=== PATIENT | female | born 1955 | race American Indian/Alaskan Native ===

== ENCOUNTER 2019-09-01 07:52 | Day surgery (SDC) | payer OTHER ==
[~2019-09-01 07:52] MED LIST: PROPOFOL 200 MG/20 ML VIAL IV ONE; SODIUM CHLORIDE 0.9% 1000 ML 1,000 ML IV SCH; fentaNYL 100 MCG/2 ML INJ ONE
[2019-09-01] MEDS ORDERED: LIDOCAINE MPF (2%) 20 MG/1 ML VIAL 5 ML ONE (09:00)
--- NOTE | 2019-09-01 09:05 | Anesthesia Day of Surgery ---
Anesthesia Day of Surgery - Day of Surgery Patient Examined: Yes Patient H&P Reviewed: Yes Patient is NPO: Yes (completed bowel prep at 0300)
--- NOTE | 2019-09-01 09:05 | Anesthesia Consultation ---
Anesthesia Consult and Med Hx Date of service: 09/01/19 - Airway Anesthetic Teeth Evaluation: Dentures (upper) ROM Head & Neck: Adequate Mental/Hyoid Distance: Inadequate Mallampati Class: Class III Intubation Access Assessment: Possibly Difficult - Pulmonary Exam CTA: Yes - Cardiac Exam Cardiac Exam: RRR - Pre-Operative Health Status ASA Pre-Surgery Classification: ASA3 Proposed Anesthetic Plan: MAC - Pulmonary Hx Smoking: No Hx Respiratory Symptoms: No - Cardiovascular System Hx Hypertension: Yes Hx Heart Attack/AMI: No Hx Percutaneous Transluminal Coronary Angioplasty (PTCA): No - Central Nervous System CVA: No - Gastrointestinal Hx Gastroesophageal Reflux Disease: Yes - Endocrine Hx Renal Disease: No Hx Liver Disease: No Hx Insulin Dependent Diabetes: Yes Hx Thyroid Disease: No - Other Systems Hx Obesity: Yes - Additional Comments Anesthesia Medical History Comments: No hx anesthetic complications.
--- NOTE | 2019-09-01 09:57 | Short Stay Summary ---
Short Stay Documentation Date of service: 09/01/19 Narrative H&P: The pt presents for EGD to evaluate epigastric pain and diagnostic colonoscopy to evaluate LLQ pain. - History Past Medical History: diabetes, hypertension Past Surgical History: appendectomy, cholecystectomy Social history: no significant social history, lives with family - Allergies and Medications Current Medications: Allergies codeine Allergy (Verified 08/31/19 11:14) Unknown NUTS Adverse Reaction (Severe, Uncoded 09/01/19 08:18) Anaphylaxis Home Medications Medication Instructions Recorded Confirmed Last Taken Type Aspirin 81 mg PO DAILY 08/31/19 09/01/19 08/30/19 History Basaglar Kwikpen U-100 53 units SQ DAILY 08/31/19 09/01/19 08/30/19 History Lisinopril/Hydrochlorothiazide 12.5 - 20 mg PO DAILY 08/31/19 09/01/19 08/31/19 History Simvastatin 20 mg PO DAILY 08/31/19 09/01/19 08/30/19 History glipiZIDE 20 mg PO DAILY 08/31/19 09/01/19 08/30/19 History metFORMIN 500 mg PO BID 08/31/19 09/01/19 08/30/19 History Magnesium 500 mg PO DAILY 09/01/19 09/01/19 08/30/19 History NovoLOG 100 UNITS/ML VIAL 7 units SUB-Q TID 09/01/19 09/01/19 08/30/19 History Vitamin D3 1 tab PO DAILY 09/01/19 09/01/19 08/30/19 History Active Medications Sodium Chloride (Nacl 0.9% 1000 Ml) 1,000 mls @ 50 mls/hr IV DIRECT LUIS Last Admin: 09/01/19 08:36 Dose: 50 mls/hr Documented by: - Physical exam General appearance: no acute distress, well-nourished Integumentary: no rash, no growths, no abnormal pigmentation HEENT: Atraumatic, PERRLA, EOMI, Mucous membr. moist/pink Lungs: Clear to auscultation, Normal air movement Breasts: deferred Heart: Regular rate, Normal S1, Normal S2, No murmurs Gastrointestinal: normoactive bowel sounds, no tenderness, no distended, no masses, no guarding, no organomegaly, no obese Female Genitourinary: deferred Rectal Exam: normal exam-external/orifice, normal rectal tone, no mass Extremities: no ischemia, pulses intact, pulses symmetrical, No edema, normal temperature, normal color, Full ROM Neurological: Normal gait, Normal speech, Strength at 5/5 X4 ext, Normal tone, Sensation intact, Cranial nerves 3-12 NL - Brief post op/procedure progress note Date of procedure: 09/01/19 Findings: see dictation Estimated blood loss: none Pathology: list (antral biopsies for h.pylori) Specimen disposition: to lab Condition: stable - Disposition Condition at discharge: Good Disposition: DC-01 TO HOME OR SELFCARE - Discharge Diagnoses (1) Epigastric abdominal pain Status: Acute (2) LLQ abdominal pain Status: Acute Short Stay Discharge Plan Activity: other (no driving for 24 hours) Weight Bearing Status: Full Weight Bearing Diet: diabetic Follow up with: JONG OG MD [Primary Care Provider] - 7 Days
--- NOTE | 2019-09-01 10:00 | Operative Report ---
Operative Report Operative Report: Date of procedure: 09/01/2019 Procedure: Esophagogastroduodenoscopy with antral biopsies for H. pylori Preprocedure diagnosis: Epigastric pain Post procedure diagnosis: Mild to moderate erosive antral gastritis Endoscopist: Dr. Marte Anesthesia: Monitored anesthesia care per anesthesia department Medications: Propofol per anesthesia Estimated blood loss: 0 After careful discussion of the nature and purpose of the procedure as well as details the technique risks benefits and alternatives consent was obtained. The patient was placed in the left lateral decubitus position and medicated per anesthesia. The tip of the Olympus video scope was passed per orum under direct vision into the esophagus and advanced into the stomach and descending duodenum. The descending duodenum the duodenal bulb and pylorus were symmetrical and normal. The scope was withdrawn into the stomach and the stomach then gently insufflated with air. The antrum revealed multiple punctate erosions. Biopsies were taken in the prepyloric area for H. pylori testing. The stomach was further insufflated and the scope was then retroflexed and partially withdrawn. The cardia, fundus, and body of the stomach were within normal limits and easily distensible.The scope was then withdrawn in the forward position. The esophagogastric junction was at 36 cm. The esophageal body was normal throughout. The procedure was was well tolerated and the patient was observed in recovery. Impressions: Mild to moderate erosive antral gastritis and normal appearing upper digestive tract otherwise. Plan: Await pathology report to assess for H. pylori infection. The patient will call the office in approximately 10 days. Electronically signed: Carlin Marte MD
--- NOTE | 2019-09-01 10:02 | Operative Report ---
Operative Report Operative Report: Date of procedure: 09/01/2019 Preprocedure diagnosis: Left lower quadrant pain Post procedure diagnosis: Normal study Procedure: Colonoscopy to the cecum Endoscopist: Dr. Marte Anesthesia: Monitored anesthesia care per anesthesia department Estimated blood loss: 0 Medications: Monitored anesthesia care. See separate report by anesthesia for details. After careful discussion of the nature and purpose of the procedure as well as details of the technique risks benefits and alternatives the patient gave consent. Please see recent history and physical from the office. The patient was placed in the left lateral decubitus position and medicated per anesthesia. A rectal exam was performed sphincter tone was normal there were no masses palpable. The Olympus colonoscope was passed transanally and advanced under continuous direct vision without difficulty to the cecum. The colon was well prepared. The cecum was normal. The ascending colon was normal and on forward and retroflexed views. The transverse colon, descending colon, and sigmoid colon were normal. The rectum was normal on forward and retroflexed views. The procedure was well-tolerated overall and the patient was observed in recovery. Conclusions: Normal colonoscopy to the cecum. Plan: Repeat colonoscopy in 10 years, sooner if clinically indicated. Signed electronically: Carlin Mrate M.D.
--- NOTE | 2019-09-01 10:13 | Post Anesthesia Evaluation ---
- Post Anesthesia Evaluation Patient Participated: Yes Airway Patent: Yes Stable Respiratory Function: Yes Nausea/Vomiting: No Temp > 96.8F: Yes Pain Manageable: Yes Adequeate Hydration: Yes Anesthesia Complications: No Block Receding Appropriately: Not Applicable Patient on Ventilator: No
[2019-09-01 10:37] VITALS: BP 128/69
== END 2019-09-01 07:53 | disposition home or self-care (01) ==
LOC: GIO 07:52
PROVIDERS: ATTEND Internal Medicine Gastroenterology
DX: R10.32 Left lower quadrant pain (principal); R10.13 Epigastric pain; K29.50 Unspecified chronic gastritis without bleeding; I10 Essential (primary) hypertension; K21.9 Gastro-esophageal reflux disease without esophagitis; E66.9 Obesity, unspecified; E11.9 Type 2 diabetes mellitus without complications; Z88.5 Allergy status to narcotic agent; Z91.018 Allergy to other foods; Z79.84 Long term (current) use of oral hypoglycemic drugs; Z79.82 Long term (current) use of aspirin; Z79.899 Other long term (current) drug therapy; Z68.32 Body mass index [BMI] 32.0-32.9, adult
CPT/HCPCS: 43239; 45378; 82962; 88305; 88342; J2704; J3010; J7030